=== PATIENT | female | born 1980 | race Caucasian/White ===

== ENCOUNTER → 2021-11-28 | Outpatient (CLI) | payer OTHER | LOC: M WHC 12:28 | PROVIDERS: ATTEND Family Medicine | DX: Z12.31 Encounter for screening mammogram for malignant neoplasm of breast (principal) ==

== ENCOUNTER → 2022-01-27 | Outpatient (CLI) | payer OTHER | LOC: M PLARAD 07:39 | PROVIDERS: ATTEND Internal Medicine Pulmonary Disease | DX: R91.8 Other nonspecific abnormal finding of lung field (principal) | CPT/HCPCS: 78815; A9552 ==

== ENCOUNTER 2022-06-18 10:44 | Day surgery (SDC) | payer OTHER ==
[~2022-06-18] VITALS: Ht 149.9 cm; Wt 63.2 kg
[~2022-06-18 10:44] MED LIST: LIDOCAINE 2% 100MG/5ML SDV (FOR ANES.) As Ordered ONE; MIDAZOLAM INJ 2MG/2ML VIAL (J2250 PER 1MG) As Ordered ONE; ROCURONIUM BROMIDE 50 MG/5 ML VIAL As Ordered ONE; fentaNYL 100 MCG/2 ML INJECTION As Ordered ONE; propofoL 200 MG/20 ML VIAL As Ordered ONE
[2022-06-18] MEDS ORDERED: LR 1,000 ML IV SCH (11:10)
[2022-06-18 11:25] LABS: HEMATOCRIT 40.5 % (36.0-47.0); HEMOGLOBIN 13.5 g/dl (12.0-15.5)
[2022-06-18] MEDS ORDERED: LIDOCAINE 1% SDV 30ML VIAL As Ordered ONE (11:45)
[2022-06-18] MEDS ORDERED: SILVER NITRATE APPLICATOR (1 = QTY 10) As Ordered ONE (11:45)
[2022-06-18] MEDS ORDERED: KETOROLAC 60MG 2ML VIAL As Ordered ONE (12:15)
[2022-06-18 13:00] VITALS: BP 119/76
== END 2022-06-18 13:05 | disposition home or self-care (01) ==
LOC: M SDC 10:44
PROVIDERS: ATTEND Obstetrics & Gynecology
DX: T83.32XA Displacement of intrauterine contraceptive device, initial encounter (principal); Y76.2 Prosthetic and other implants, materials and accessory obstetric and gynecological devices associated with adverse incidents; R91.8 Other nonspecific abnormal finding of lung field
CPT/HCPCS: 36415; 58301; 81025; 85014; 85018; J1885; J2250; J3010

== ENCOUNTER → 2022-09-12 | Outpatient (CLI) | payer OTHER | LOC: M RAD 07:19 | PROVIDERS: ATTEND Internal Medicine Pulmonary Disease | DX: R91.8 Other nonspecific abnormal finding of lung field (principal); K44.9 Diaphragmatic hernia without obstruction or gangrene ==